=== PATIENT | male | born 1970 | race Caucasian/White ===

== ENCOUNTER 2017-05-26 11:21 | Emergency (ER) | payer SELFPAY ==
[2017-05-26] MEDS ORDERED: Lidocaine 1% 50 ML MDV INJECT ONE (11:40)
--- NOTE | 2017-05-26 11:40 | EDM.PDOC ---
ED HPI GENERAL MEDICAL PROBLEM - General Chief Complaint: Trauma Stated Complaint: MULTIPLE INJURIES Time Seen by Provider: 05/26/17 11:26 Source of Information: Reports: Patient History Limitations: Reports: No Limitations - History of Present Illness INITIAL COMMENTS - FREE TEXT/NARRATIVE: Patient is a 46-year-old male who presents via POV complaining of right sided anterior chest discomfort and also right knee pain. Patient was in a small tractor bucket placing a T post into the ground. He lost his balance and fell forward off of the bucket. He landed on the right side of his back. There was no loss consciousness. He was able to get up on his own accord with minimal difficulties. He has a deep laceration to the anterior aspect of his right knee. He is able to ambulate. He has no cervical, thoracic, lumbar back pain. There is again no loss of consciousness. He has no numbness or tingling to extremities, nausea/vomiting, shortness of breath, abdominal pain, or any additional complaints. He did urinate just prior to admission to the ED. There is no blood present. Tetanus status is up-to-date. right knee Pain Score (Numeric/FACES): 5 - Related Data Allergies Allergy/AdvReac Type Severity Reaction Status Date / Time No Known Allergies Allergy Verified 05/26/17 11:35 Home Meds: Home Meds Acetaminophen/HYDROcodone [Ovid 325-5 MG] 1 tab PO Q6H PRN #8 tablet 05/26/17 [ Rx] Caprofen 1 tab PO BID 05/26/17 [History] Cephalexin [Keflex] 500 mg PO TID #30 cap 05/26/17 [Rx] Ibuprofen 200 mg PO ASDIRECTED PRN 05/26/17 [History] Ranitidine HCl [Acid Warp Tying Machine Knotter] 75 mg PO DAILY 05/26/17 [History] Review of Systems - Review of Systems Review Of Systems: ROS reveals no pertinent complaints other than HPI. ED EXAM, GENERAL - Physical Exam Exam: See Below Exam Limited By: No Limitations General Appearance: Alert, WD/WN, Mild Distress Eye Exam: Bilateral Eye: EOMI, Nystagmus (none found), PERRL Ears: Hearing Grossly Normal Nose: Normal Inspection Throat/Mouth: Normal Inspection, Normal Voice, No Airway Compromise Head: Atraumatic, Normocephalic Neck: Normal Inspection, Supple, Non-Tender, Full Range of Motion Respiratory/Chest: No Respiratory Distress, Lungs Clear, Normal Breath Sounds, No Accessory Muscle Use, Other (Tenderness to the Right upper chest with palpation. No swelling, ecchymosis, crepitus, and deformity noted.) Cardiovascular: Normal Peripheral Pulses, Regular Rate, Rhythm, No JVD, No Murmur Peripheral Pulses: 2+: Radial (L), Radial (R) GI/Abdominal: Normal Bowel Sounds, Soft, Non-Tender, No Organomegaly, No Distention Back Exam: Normal Inspection, Full Range of Motion. No: CVA Tenderness (L), CVA Tenderness (R), Decreased Range of Motion, Paraspinal Tenderness Extremities: Other (Deep laceration to the anterior aspect of the right knee. Minimal pain on palpation. Limited range of motion secondary to laceration discomfort. No numbness or tingling present. No sensory/motor deficits distally. Patient is able to move the remaining extremities freely with no pain. No pain with palpation or other findings of trauma.) Neurological: Alert, Oriented, CN II-XII Intact, Normal Cognition, No Motor/ Sensory Deficits Psychiatric: Normal Affect, Normal Mood Skin Exam: Warm, Dry, Normal Color ED TRAUMA PROCEDURES - Laceration/Wound Repair Right Anterior Knee Lac/Wound Length In cm: 6 Appearance: Subcutaneous, Clean Distal NVT: Neuro & Vascular Intact Anesthetic Type: Local Local Anesthesia - Lidocaine (Xylocaine): 1% Plain Local Anesthetic Volume: 5cc Skin Prep: Chlorhexidine (Hibiciens), Saline, Sterile Drape Exploration/Debridement/Repair: Wound Explored, In a Bloodless Field, Explored to Base, No Foreign Material Found Suture Size: 3-0 # of Sutures: 9 Suture Type: Prolene, Interrupted, Simple Suture Size: 3-0 # of Sutures: 2 Repaired With: Vicryl Drain Placement: No Sterile Dressing Applied: Nurse Tetanus Status Addressed: Yes Complications: No Course - Vital Signs Last Recorded V/S: Last Vital Signs Temp 98.1 F 05/26/17 11:25 Pulse 62 05/26/17 13:19 Resp 14 05/26/17 13:19 BP 149/93 H 05/26/17 13:19 Pulse Ox 100 05/26/17 13:19 - Orders/Labs/Meds Orders: Active Orders 24 hr Category Date Time Status EKG Documentation Completion [RC] STAT Care 05/26/17 11:36 Active Chest 1V Frontal [CR] Routine Exams 05/26/17 11:48 Taken Knee 1V or 2V Rt [CR] Routine Exams 05/26/17 11:48 Taken Labs: Laboratory Tests 05/26/17 05/26/17 Range/Units 11:38 11:38 WBC 8.66 (4.23-9.07) K/mm3 RBC 4.86 (4.63-6.08) M/mm3 Hgb 15.6 (13.7-17.5) gm/L Hct 46.2 (40.1-51.0) % MCV 95.1 H (79.0-92.2) fl MCH 32.1 (25.7-32.2) pg MCHC 33.8 (32.2-35.5) g/dl RDW Std Deviation 44.0 H (35.1-43.9) fL Plt Count 195 (163-337) K/mm3 MPV 9.6 (9.4-12.3) fl Neutrophils % (Manual) 43 (40-60) % Band Neutrophils % 0 (0-10) % Lymphocytes % (Manual) 48 H (20-40) % Atypical Lymphs % 0 % Monocytes % (Manual) 7 (2-10) % Eosinophils % (Manual) 2 (0.8-7.0) % Basophils % (Manual) 0 L (0.2-1.2) Platelet Estimate Adequate RBC Morph Comment Normal Sodium 140 (136-145) mEq/L Potassium 3.9 (3.5-5.1) mEq/L Chloride 105 (98-107) mEq/L Carbon Dioxide 26 (21-32) mEq/L Anion Gap 12.9 (5-15) BUN 22 H (7-18) mg/dL Creatinine 1.1 (0.7-1.3) mg/dL Est Cr Clr Drug Dosing 103.50 mL/min Estimated GFR (MDRD) > 60 (>60) mL/min BUN/Creatinine Ratio 20.0 H (14-18) Glucose 112 H (74-106) mg/dL Calcium 9.7 (8.5-10.1) mg/dL Total Bilirubin 0.7 (0.2-1.0) mg/dL AST 20 (15-37) U/L ALT 24 (16-63) U/L Alkaline Phosphatase 89 (46-116) U/L Total Protein 7.4 (6.4-8.2) g/dl Albumin 3.9 (3.4-5.0) g/dl Globulin 3.5 gm/dL Albumin/Globulin Ratio 1.1 (1-2) Amylase 32 (25-115) U/L Meds: Medications Discontinued Medications Generic Name Dose Route Start Last Admin Trade Name Juanjoq PRN Reason Stop Dose Admin Hydrocodone Bitart/Acetaminophen 1 tab 05/26/17 12:36 05/26/17 12:45 Ovid 325-5 Mg PO 05/26/17 12:37 1 tab ONETIME ONE Administration Cephalexin 500 mg 05/26/17 13:03 05/26/17 13:06 Keflex PO 05/26/17 13:04 500 mg ONETIME ONE Administration Lidocaine HCl 50 ml 05/26/17 11:40 05/26/17 12:46 Xylocaine 1% INJECT 05/26/17 11:41 50 ml ONETIME ONE Administration Lorazepam 1 mg 05/26/17 11:50 05/26/17 11:57 Ativan PO 05/26/17 11:51 1 mg ONETIME ONE Administration - Re-Assessments/Exams Free Text/Narrative Re-Assessment/Exam: Patient is a [age]-year-old male who fell approximately 5 feet landing on his right back. There was no loss conscious. He was able get up on his own accord with no difficulties. He complains of anterior chest discomfort at mild in nature. In addition has a 6 cm deep laceration to the anterior aspect of his right knee. Again patient was ambulatory. Pain is mild. Reexamination cervical spine patient has no midline or paraspinal tenderness. He has no decreased range of motion noted. No cervical spine precautions will be undertaken. In addition on examination of his back there is no midline vertebral thoracic/ lumbar pain or deformity. No trauma noted to his back. No pain with palpation of his back. At this point we'll go ahead and obtain a chest x-ray and x-ray of his right knee. EKG has been obtained. Will obtain basic labs including CBC, chem 14, UA, and lipase. 05/26/17 11:41 EKG revealed sinus rhythm at a rate of 68 with normal P axis. Normal early repolarization pattern present. No acute ST changes noted. 05/26/17 12:13 CXR: questionable right apical pneumothorax. Patients pain localized to this area and has mild shortness of breath present. 05/26/17 12:57 Laceration closed with no complications. X-ray of the right knee did reveal small hairline fracture. Thus this is a open fracture. We'll place right knee in a knee immobilizer and started him on Keflex 500 mg by mouth. In addition patient received Ovid one tab by mouth for pain. Labs reviewed. 05/26/17 13:02 Per Radiology Right Knee no fracture present. CT of the chest impression: Several cysts with the liver. Incidental degenerative spurring with spine. No additional abnormalities identified on noncontrast CT study of the chest. Will discharge patient home with instructions as documented. Departure - Departure Time of Disposition: 13:58 Disposition: Home, Self-Care 01 Condition: Good Clinical Impression: Contusion, multiple sites, Chest wall pain Laceration of right knee without foreign body Qualifiers: Encounter type: initial encounter Qualified Code(s): S81.011A - Laceration without foreign body, right knee, initial encounter - Discharge Information Prescriptions: Acetaminophen/HYDROcodone [Ovid 325-5 MG] 1 tab PO Q6H PRN #8 tablet PRN Reason: Pain (Severe 7-10) Cephalexin [Keflex] 500 mg PO TID #30 cap Instructions: Contusion, Chest Wall Pain, [id number], Laceration Care, Adult Referrals: Donald Howard MD [Primary Care Provider] - Forms: ED Department Discharge Additional Instructions: Cleanse site twice daily with soap and water, pat dry, reapply Triple Antibiotic ointment, with dressing. Utilize Tylenol and ibuprofen in alternating fashion for pain. For severe pain not managed with the above therapies take Ovid one tab every [address] today nor while taking the Ovid. Take Keflex as prescribed. Refrain from soaking the laceration. Follow-up with a provider in 10 days for suture removal. Be aware you'll be increased sore over the next 2-3 days. Soreness should drastically improved thereafter. Refrain from any activities that cause worsening pain. Follow-up with your primary care provider as needed. Return to ED for any new or worsening symptoms. - My Orders Last 24 Hours: My Active Orders 05/26/17 11:36 EKG Documentation Completion [RC] STAT 05/26/17 11:48 Chest 1V Frontal [CR] Routine Knee 1V or 2V Rt [CR] Routine - Assessment/Plan Last 24 Hours: My Active Orders 05/26/17 11:36 EKG Documentation Completion [RC] STAT 05/26/17 11:48 Chest 1V Frontal [CR] Routine Knee 1V or 2V Rt [CR] Routine
[2017-05-26] MEDS ORDERED: LORazepam 1 MG Tab PO ONE (11:50)
[2017-05-26] MEDS ORDERED: Acetaminophen/HYDROcodone 325-5 MG Tab PO ONE (12:36)
[2017-05-26] MEDS ORDERED: Cephalexin 500 MG Cap PO ONE (13:03)
[2017-05-26 13:20] VITALS: BP 149/93
--- NOTE | 2017-05-26 13:33 | CT ---
CT chest Technique: Multiple axial sections through the chest were obtained. Intravenous contrast was not utilized. Comparison: Previous chest x-ray performed earlier on the same day (11:36 AM). Cyst is identified within the dome of the right lobe of the liver measuring 1.1 cm. Cyst also seen more inferiorly within the right lobe measuring about 4 mm. Other portions of the noncontrast study of the upper abdomen appears unremarkable. Mediastinum and hilar regions are unremarkable. No pericardial thickening is seen. Lungs are clear. No pleural effusions are seen. No pneumothorax is seen. Bone window settings were reviewed showing scattered degenerative endplate spurring within the spine. No acute rib fracture is appreciated. Impression: 1. Several cysts within the liver. 2. Incidental degenerative spurring within the spine. 3. No additional abnormality is identified on noncontrast CT study of the chest. Diagnostic code #2
--- NOTE | 2017-05-27 08:32 | CR ---
Chest: Portable view of the chest was obtained. Comparison: No previous study. Heart size is normal. Mild tortuosity of the thoracic aorta is seen. Lungs are clear. Bony structures are grossly intact. Impression: 1. Nothing acute is identified on portable chest x-ray. Diagnostic code #1
--- NOTE | 2017-05-27 08:32 | CR ---
Right knee: Two views of the right knee were obtained. Comparison: No previous study. Medial and lateral joint spaces are maintained in height. No joint effusion is seen. No acute fracture or other bony abnormality is seen. Soft tissue air is identified anteriorly within the knee. There is slight lucency within the patella believed to represent air overlying this portion of the patella. Impression: 1. No bony abnormality is identified on two-view right knee exam. 2. Soft tissue air compatible with soft tissue injury. Diagnostic code #3
== END 2017-05-26 14:09 | disposition home or self-care (01) ==
LOC: JD.ED 11:21
DX: S81.011A Laceration without foreign body, right knee, initial encounter (principal); T14.8 Other injury of unspecified body region; R07.89 Other chest pain; W17.89XA Other fall from one level to another, initial encounter
CPT/HCPCS: 12032; 36415; 71010; 71250; 73560; 80053; 82150; 85025; 93005; 99284; A9270; 99283-25

== ENCOUNTER 2019-01-16 14:56 | Emergency (ER) | payer OTHER ==
[2019-01-16] MEDS ORDERED: Lidocaine 1% with EPINEPHrine 1:100,000 20 ML MDV INJECT ONE (16:19)
[2019-01-16] MEDS ORDERED: Diphtheria,Pertussis(Acell),Tetanus Vaccine 0.5 ML Syringe IM ONE (17:27)
--- NOTE | 2019-01-16 17:27 | EDM.PDOC ---
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 He states he fell about a couple feet and hit his head on a 2x8 piece of wood. He did no lose consciousness or obtain any other injuries. He has mild pain and is actively bleeding. No other complaints at this time. He does not think that his Tetanus is UTD. Left Forehead Pain Score (Numeric/FACES): 4 - Related Data Allergies Allergy/AdvReac Type Severity Reaction Status Date / Time No Known Allergies Allergy Verified 05/26/17 11:35 Home Meds: Home Meds Caprofen 1 tab PO BID 05/26/17 [History] Ranitidine HCl [Acid Electrical Equipment Technician] 75 mg PO DAILY 05/26/17 [History] Past Medical History - Past Health History Medical/Surgical History: Denies Medical/Surgical History Gastrointestinal History: Reports: GERD Musculoskeletal History: Reports: Other (See Below) Other Musculoskeletal History: ankle fx Psychiatric History: Reports: Anxiety Endocrine/Metabolic History: Reports: Diabetes, Type II - Past Surgical History GI Surgical History: Reports: Hernia, Abdominal Social & Family History - Family History Family Medical History: Noncontributory - Tobacco Use Smoking Status *Q: Never Smoker Second Hand Smoke Exposure: No - Caffeine Use Caffeine Use: Reports: Coffee - Recreational Drug Use Recreational Drug Use: No ED ROS GENERAL - Review of Systems Review Of Systems: ROS reveals no pertinent complaints other than HPI. ED EXAM, SKIN/RASH Exam: See Below Exam Limited By: No Limitations General Appearance: Alert, WD/WN, No Apparent Distress Eye Exam: Bilateral Eye: EOMI, Normal Inspection, PERRL Ears: Normal External Exam, Hearing Grossly Normal Nose: Normal Inspection, Normal Mucosa, No Blood Throat/Mouth: Normal Inspection, Normal Lips, Normal Teeth, Normal Gums, Normal Oropharynx, Normal Voice, No Airway Compromise Head: Atraumatic, Normocephalic Neck: Normal Inspection, Supple, Non-Tender, Full Range of Motion Respiratory/Chest: No Respiratory Distress, Lungs Clear, Normal Breath Sounds, No Accessory Muscle Use, Chest Non-Tender Cardiovascular: Normal Peripheral Pulses, Regular Rate, Rhythm, No Edema, No Gallop, No JVD, No Murmur, No Rub Extremities: Normal Inspection, Normal Range of Motion, Non-Tender, No Pedal Edema, Normal Capillary Refill Neurological: Alert, Oriented, CN II-XII Intact, Normal Cognition, Normal Gait, Normal Reflexes, No Motor/Sensory Deficits Skin: Warm, Dry, Wound/Incision (3cm laceration above and partially through left eyebrow) ED SKIN PROCEDURES - Laceration/Wound Repair Left Upper Face Lac/Wound length In cm: 3 Appearance: Subcutaneous, Mildly Contaminated Distal NVT: Neuro & Vascular Intact, No Tendon Injury Anesthetic Type: Local Local Anesthesia - Lidocaine (Xylocaine): 1% with EPI Local Anesthetic Volume: 3cc Skin Prep: Chlorhexidine (Hibiciens), Saline Exploration/Debridement/Repair: Wound Explored, Minimal Debridement, No Foreign Material Found Closed with: Sutures Suture Size: other (5-0) # of Sutures: 6 Suture Type: Nylon Course - Vital Signs Last Recorded V/S: Last Vital Signs Temp 99.3 F 01/16/19 15:07 Pulse 91 01/16/19 15:07 Resp 18 01/16/19 15:07 BP Pulse Ox 96 01/16/19 15:07 - Orders/Labs/Meds Orders: Active Orders 24 hr Category Date Time Status Vaccines to be Administered [RC] PER UNIT ROUTINE Care 01/16/19 17:28 Active Meds: Medications Discontinued Medications Generic Name Dose Route Start Last Admin Trade Name Freq PRN Reason Stop Dose Admin Diphtheria/Tetanus/Acell Pertussis 0.5 ml 01/16/19 17:27 01/16/19 17:36 Adacel IM 01/16/19 17:28 0.5 ml .ONCE ONE Administration Lidocaine/Epinephrine 20 ml 01/16/19 16:19 01/16/19 17:11 Xylocaine 1% With Epinephrine 1:100,000 INJECT 01/16/19 16:20 20 ml ONETIME ONE Administration Departure - Departure Time of Disposition: 17:20 Disposition: Home, Self-Care 01 Condition: Good Clinical Impression: Laceration of left eyebrow - Discharge Information *PRESCRIPTION DRUG MONITORING PROGRAM REVIEWED*: Not Applicable *COPY OF PRESCRIPTION DRUG MONITORING REPORT IN PATIENT TULIO: Not Applicable Instructions: Sutured Wound Care, [id number] Referrals: Donald Howard MD [Primary Care Provider] - Forms: ED Department Discharge Additional Instructions: You were seen in the ED today for a laceration around your left eyebrow after falling and hitting a 2x8 piece of wood. Your wound was cleaned and you received 6 stitches. Please keep the area clean and covered with a bandage. You can come back to the ED or to the clinic to have the sutures removed in about 5- 7 days. Please look for signs of infection such as fever/chills, purulent drainage, etc. If signs of infection, please come back for antibiotics. You also received a tetanus shot today and will not need another one for 10 years. Please return to ED if new or worsening symptoms. - My Orders Last 24 Hours: My Active Orders 01/16/19 17:28 Vaccines to be Administered [RC] PER UNIT ROUTINE - Assessment/Plan Last 24 Hours: My Active Orders 01/16/19 17:28 Vaccines to be Administered [RC] PER UNIT ROUTINE
== END 2019-01-16 17:43 | disposition home or self-care (01) ==
LOC: JD.ED 14:56
DX: S01.112A Laceration without foreign body of left eyelid and periocular area, initial encounter (principal); Z23 Encounter for immunization; K21.9 Gastro-esophageal reflux disease without esophagitis; Z79.899 Other long term (current) drug therapy; W19.XXXA Unspecified fall, initial encounter
CPT/HCPCS: 12013; 90471; 90700; 99282; 99283

== ENCOUNTER 2019-01-22 12:48 | Emergency (ER) | payer OTHER | END 2019-01-22 13:07 | disposition home or self-care (01) | LOC: JD.ED 12:48 | DX: S01.112D Laceration without foreign body of left eyelid and periocular area, subsequent encounter (principal); W19.XXXD Unspecified fall, subsequent encounter ==